=== PATIENT | female | born 1960 | race Caucasian/White ===

== ENCOUNTER 2017-02-08 02:41 | Emergency (ER) | payer BC ==
[2017-02-08 04:08] VITALS: BP 146/92
== END 2017-02-08 04:08 | disposition home or self-care (01) ==
LOC: ED 02:41
DX: M54.32 Sciatica, left side (principal); E89.0 Postprocedural hypothyroidism; E11.9 Type 2 diabetes mellitus without complications; Z79.4 Long term (current) use of insulin; Z79.899 Other long term (current) drug therapy; Z88.0 Allergy status to penicillin; Z88.8 Allergy status to other drugs, medicaments and biological substances; Z88.6 Allergy status to analgesic agent
CPT/HCPCS: J1885; J7512

== ENCOUNTER 2017-02-13 02:38 | Emergency (ER) | payer BC ==
[2017-02-13 02:48] VITALS: BP 114/96
== END 2017-02-13 04:02 | disposition home or self-care (01) ==
LOC: ED 02:38
DX: M54.5 Low back pain (principal); E11.9 Type 2 diabetes mellitus without complications; E03.9 Hypothyroidism, unspecified; Z88.0 Allergy status to penicillin; Z88.6 Allergy status to analgesic agent
CPT/HCPCS: J1885